=== PATIENT | female | born 1965 | race Caucasian/White ===

== ENCOUNTER → 2021-06-06 | Outpatient (CLI) | payer OTHER | LOC: MC.RAD 13:41 | DX: N63.15 Unspecified lump in the right breast, overlapping quadrants (principal); R92.0 Mammographic microcalcification found on diagnostic imaging of breast ==

== ENCOUNTER → 2021-06-19 | Outpatient (CLI) | payer OTHER | LOC: MC.RAD 08:24 | DX: R92.8 Other abnormal and inconclusive findings on diagnostic imaging of breast (principal) ==